=== PATIENT | female | born 1955 | race Caucasian/White ===

== ENCOUNTER 2020-06-10 06:04 | Inpatient (IN) | payer BC ==
[2020-06-07 13:04] LABS: HEMATOCRIT 36.3 % (37.0-47.0); HEMOGLOBIN 12.1 gm/dL (12.0-15.0); MCH 30.7 pg (26.0-34.0); MCHC 33.3 g/dL (28.0-37.0); MCV 92.2 fL (80.0-100.0); RBC 3.94 mil/uL (4.20-5.00); RDW 14.7 % (10.5-14.5); URINE BILIRUBIN NEGATIVE (Negative); URINE BLOOD NEGATIVE (Negative); URINE CLARITY CLEAR; URINE COLOR YELLOW; URINE GLUCOSE-RANDOM* NEGATIVE (Negative); URINE KETONES NEGATIVE (Negative); URINE PROTEIN (DIPSTICK) NEGATIVE (Negative); WBC 7.8 thou/uL (4.0-11.0)
[2020-06-07 13:14] LABS: ALBUMIN 3.7 g/dL (3.4-5.0); CALCIUM 8.7 mg/dL (8.5-10.1); CREATININE 1.5 mg/dL (0.6-1.0); POTASSIUM 3.9 mmol/L (3.5-5.1)
[2020-06-07 13:16] LABS: URINE LEUKOCYTES-REFLEX 2+ (Negative); URINE NITRITE-REFLEX POSITIVE (Negative)
[2020-06-07 13:21] LABS: CASTS None Seen /LPF (None Seen); CRYSTALS None Seen /LPF (None Seen); SQUAMOUS >10 Many /LPF (0-3); URINE RBC None Seen /HPF (0-2)
[2020-06-07 13:22] LABS: URINE WBC-REFLEX 6-15 Few /HPF (0-5)
[2020-06-08 01:06] LABS: GLYCOHEMOGLOBIN (HGB A1C) 5.4 % (4.8-5.6)
[~2020-06-10] VITALS: Ht 165.1 cm; Wt 124.7 kg
[~2020-06-10 06:04] MED LIST: ASA81BEC PO; BUPROPION HCL150 MG PO; COZAAR100 MG PO; FOSAMAX 70 MG T70 MG PO; LEVO-T100 MCG PO; LEXAPRO20 MG PO; LOPRESSOR50 MG PO; METOPROLOL TART25 MG PO; PACERONE200 MG PO; SPIRONOLACTONE50 MG PO; VITAMIN D350 MCG PO
[2020-06-10 07:25] VITALS: BP 117/48
[2020-06-10 07:38] LABS: URINE BILIRUBIN NEGATIVE (Negative); URINE BLOOD NEGATIVE (Negative); URINE CLARITY CLEAR; URINE COLOR YELLOW; URINE GLUCOSE-RANDOM* NEGATIVE (Negative); URINE KETONES NEGATIVE (Negative); URINE PROTEIN (DIPSTICK) NEGATIVE (Negative); URINE UROBILINOGEN 0.2 E.U./dl (0.2-1.0)
[2020-06-10 07:40] LABS: URINE LEUKOCYTES-REFLEX 1+ (Negative); URINE NITRITE-REFLEX POSITIVE (Negative)
[2020-06-10 07:42] LABS: CASTS None Seen /LPF (None Seen); SQUAMOUS >10 Many /LPF (0-3)
[2020-06-10 07:43] LABS: BACTERIA-REFLEX >30 Many /HPF (None Seen); CRYSTALS None Seen /LPF (None Seen); URINE RBC None Seen /HPF (0-2); URINE WBC-REFLEX 6-15 Few /HPF (0-5)
[2020-06-10 10:27] VITALS: BP 131/66
[2020-06-10] MEDS ORDERED: CELECOXIB200 MG PO (11:12)
[2020-06-10] MEDS ORDERED: ALENDRONATE SOD70 MG PO (11:14)
[2020-06-10] MEDS ORDERED: TRAZODONE HCL50 MG PO (11:16)
[2020-06-10] MEDS ORDERED: LISINOPRIL2.5 MG PO (11:18)
[2020-06-10] MEDS ORDERED: POTASSIUM20 PO (11:20)
--- NOTE | 2020-06-10 11:57 | O ---
[facility] [place] [address] OPERATIVE REPORT Name: ANGELIQUE ELLIOTT Room #: 442-P ADM IN M.R.#: [id number] Admission: 06/10/20 Attend Phys: Wayne Quinonez MD Discharge: Date of : 53 Report #: [id number] THIS REPORT FOR: cc: Adriana Laureano,Wayne Flaherty MD ~ CC: Wayne Laureano DATE OF SERVICE: 06/10/2020 PREOPERATIVE DIAGNOSIS: End-stage degenerative arthritis, left knee. POSTOPERATIVE DIAGNOSIS: End-stage degenerative arthritis, left knee. PROCEDURE: Left total knee arthroplasty. SURGEON: Wayne Quinonez MD INDICATIONS: This heavy 65-year-old female complains of progressive left knee pain with mild varus deformity. She is quite heavy and deconditioned, but is still active and actually working. She is having more difficulty with any prolonged standing or walking and has decided to go ahead with left total knee arthroplasty. We have discussed that she has had some increased risk for postoperative problems given her size. DESCRIPTION OF PROCEDURE: The patient was taken to the operating room where she was placed under general anesthesia. A femoral nerve block was also applied. The left knee and leg were meticulously prepped and draped. A thigh tourniquet was applied and inflated to 350 mmHg. An anterior longitudinal skin incision was made and carried through the medial retinaculum. The patella was reflected laterally. Moderately severe degenerative change in all 3 compartments was noted. The Chandler and Nephew knee system was utilized. Intramedullary guides were used on both the femur and the tibia. The femur was cut in 5 degrees of valgus. The tibia was cut perpendicular to long axis of the bone. This resulted in good improvement in her preoperative varus malalignment. The femur was best suited for a size 4 femoral component. The tibia was best suited for a size 3 tibial component. A trial reduction was performed and an 11 mm polyethylene insert resulted in satisfactory alignment, range of motion and stability. The patellar surface was resected and a 35 mm patellar button seemed to fit most appropriately. Appropriate anchor holes were created. A trial patella was placed and the patella seemed to track nicely and appeared to be stable. The trial components were removed. The bony surfaces were thoroughly irrigated and dried. The intramedullary canal was blocked with bone block on both the [address] [address] OPERATIVE REPORT Name: EARLANGELIQUE Room #: 442-P [facility] IN .R.#: [id number] Admission: 06/10/20 Attend Phys: Wayne Quinonez MD Discharge: Date of : 53 Report #: [id number] femoral and tibial sides. Methyl methacrylate cement was mixed and injected into the porous surface of the tibia. The permanent components were brought up onto the field. The Chandler and Nephew size 3 tibial Romelia II left nonporous tibial base plate was selected. This was impacted into the tibia in appropriate alignment. It seated nicely and appeared to be secure. Excess cement was removed from around its margin. The Chandler and Nephew size 4 left cruciate retaining Legion femoral component was impacted on the distal femur. Some cement was used at the distal locking holes as she is somewhat osteoporotic. The femoral component also seemed to seat nicely and appeared to be secure. An 11 mm Legion cruciate retaining articular polyethylene insert was then applied, this was snapped into place and seated nicely and appeared to be secure. The size 35 mm Romelia II patellar resurfacing button was applied with appropriate anchor holes and cement, that was secured with a patellar clamp until the cement had hardened. Once the cement was firm, range of motion, alignment and stability were once again assessed and felt to be satisfactory. The patellar tracks nicely and appears to be stable. She demonstrates full knee extension and flexion beyond 120 degrees, although she is somewhat limited by her very large size. At this point, a single Hemovac was left in the wound exiting through a separate stab incision. The fascia was closed with multiple #1 Vicryl sutures. The tourniquet was deflated after a total tourniquet time of 62 minutes. Good hemostasis was confirmed. The abundant adipose tissues were closed with multiple layers of 0 Monocryl. The skin was closed with skin sarah. A sterile dressing was applied. The patient was awakened and returned to recovery room in good condition. <ELECTRONICALLY SIGNED> By: Wayne Quinonez MD 06/10/20 1157 [id number] Wayne Quinonez MD /nt
--- NOTE | 2020-06-10 14:50 | NUR ---
ASSESSMENT: CM REVIEWED CHART AND SPOKE WITH PT. PT IS S/P TKA. PT REPORTS SHE LIVES IN A HOME WITH HER AND CURRENTLY DAUGHTER AND TWO GRANDCHILDREN ARE STAYING THERE WELL. SHE REPORTS HAVING 3 STEPS WITH HANDRAIL TO ENTER. PT REPORTS ONCE INSIDE THERE ARE NO STEPS AND IT IS A RANCH STYLE HOME. PT REPORTS SHE DOES NOT HAVE ANY DME AT HOME OTHER THEN A CPAP. PT REPORTS NORMALLY WALKING INDEPENDENTLY. PT REPORTS HAVING HH YEARS AGO BUT UNSURE THE AGENCY. CM DISCUSSED POSSIBLE NEED FOR DME AT DISCHARGE AND SHE REPORTS NO PREFERENCE OF PROVIDER. CM WILL CONTINUE TO FOLLOW AND AWAIT THERAPY EVALS.
--- NOTE | 2020-06-10 15:38 | NUR ---
PT CARE ASSUMED FROM OR AT 1010. A&Ox4. NO COMPLAINTS OF PAIN FEMORAL BLOCK IN PLACE. HEMOVAC. TEDHOSES KNEE HIGH, SCD'S. POST OP FLUIDS INFUSING. VITALS STABLE. PERSONAL CPAP IN ROOM. ADMISSION COMPLEETE. PAPERWORK SIGNED. IV PATENT WITH NO REDNESS OR EDEMA, FLUIDS INFUSING. PT/OT/RT IN PLACE. BID BLOODSUGAR CHECKS. HAS URINATED. FALL PROTOCOL IN PLACE. CALL LIGHT IN REACH. WILL CONTINUE TO MONITOR.
[2020-06-10 16:11] VITALS: BP 99/46
[2020-06-10 20:01] VITALS: BP 93/45
[2020-06-10 23:12] VITALS: BP 93/45
[2020-06-11] VITALS (8 sets, daily range): BP systolic 100–116; BP diastolic 42–57
--- NOTE | 2020-06-11 03:37 | NUR ---
PT AOX4. PT REPORTS 3-4/10 LEFT BACK OF KNEE PAIN. PT RECEIVING PRN PO NORCO Q4HR WITH PRN PO OXYCODONE Q4HR AVAILABLE. PT DENIES SOB. PT WITH SLEEP APNEA, USING CPAP AT HS. PT TOLERATING PO INTAKE OF FLUIDS AND 2GM SODIUM DIET. PT VOIDING BY BEDPAN. PT RESTING IN BED THROUGHOUT SHIFT, FREQUENT REPOSITIONING ENCOURAGED. PT NOTED TO SHIFT INDEPENDENTLY WHILE IN BED. PT WITHOUT NUMBNESS OR TINGLING TO ALL EXTREMITIES. CAPILLARY REFILL INTACT, LESS THAN 3SEC IN ALL EXTREMITIES. PT ENCOURAGED TO NOTIFY STAFF FOR ALL NEEDS. CALL LIGHT WITHIN REACH, BED ALARM ON, BED IN LOWEST POSITION, FREQUENT MONITORING WILL CONTINUE.
[2020-06-11 05:40] LABS: HEMATOCRIT 27.7 % (37.0-47.0); HEMOGLOBIN 9.3 gm/dL (12.0-15.0); MCHC 33.6 g/dL (28.0-37.0); MCV 92.2 fL (80.0-100.0); RDW 14.5 % (10.5-14.5); WBC 9.9 thou/uL (4.0-11.0)
--- NOTE | 2020-06-11 08:27 | NUR ---
RD consult received. Pt with high BMI 45.8=class III obesity. Admit with left TKR. Hx diet controlled DM, CHF, HTN. Eating 100% meals. A1C 5.4 and accucheck 93 without need for insulin coverage. Low nutrition risk.
[2020-06-11 09:37] LABS: CALCIUM 8.8 mg/dL (8.5-10.1); CREATININE 1.5 mg/dL (0.6-1.0); MAGNESIUM 2.4 mg/dL (1.8-2.4); POTASSIUM 4.3 mmol/L (3.5-5.1)
--- NOTE | 2020-06-11 16:16 | NUR ---
ON-GOING ASSESSMENT: CM REVIEWED CHART. PT IS SLOWLY PROGRESSING TOWARDS DISCHARGE GOALS AND WILL LIKELY DISCHARGE OVER THE WEEKEND WITH HOME HEALTH ([facility] ). CONTACT [facility] TO NOTIFY OF DISCHARGE AT [phone] AND FAX D/C ORDERS AND SUMMARY TO THEM AT [phone]. PT WILL NEED TO BE ISSUED A WALKER BY PHYSICAL THERAPY OVER THE WEEKEND PRIOR TO D/C. CM NOTIFIED PHYSICAL THERAPY AT [phone]. PT LIVES AT HOME WITH FAMILY AND WILL HAVE TRANSPORTATION HOME.
--- NOTE | 2020-06-11 16:22 | NUR ---
ON-GOING ASSESSMENT: CM REVIEWED CHART. PT IS POSSIBLE DISCHARGE WITH HOME HEALTH ([facility]) OVER THE WEEKEND. CONTACT [facility] AT [phone] TO NOTIFY THEM OF DISCHARGE AND FAX DISCHARGE ORDERS AND SUMMARY TO THEIR FAX [phone]. PT WILL ALSO NEED TO BE ISSUED A WALKER OVER THE WEEKEND BY PHYSCIAL THERAPY PRIOR TO DISCHARGE. CM SPOKE [facility] PROVIDER PLUS WHO STATES PHYSICAL THERAPY CAN ISSUE IT OVER THE WEEKEND TO THE PATIENT. CM NOTIFIED PHYSICAL THERAPY AT 1-1970. PT LIVES WITH FAMILY AND THEY WILL PROVIDE TRANSPORTATION HOME.
--- NOTE | 2020-06-12 00:54 | NUR ---
PT WAS OBSERVED LYING IN BED WITH HER EYES CLOSED AT THE START OF SHIFT.PT DENIED PAIN SO FAR.DRSG TO HER L KNEE C/D/I.INCENTIVE SPIROMETER ENCOURAGED.SCD AND FALL PRECAUTION IN PLACE.PT SLEEPING WITH HER CPAP AT THIS TIME.PT ABLE TO REPOSITION SELF WHILE IN BED.CALL LIGHT WITHIN REACH.
[2020-06-12 04:06] VITALS: BP 127/49
[2020-06-12 05:28] LABS: HEMATOCRIT 27.7 % (37.0-47.0); HEMOGLOBIN 9.3 gm/dL (12.0-15.0); MCH 30.8 pg (26.0-34.0); MCHC 33.7 g/dL (28.0-37.0); MCV 91.3 fL (80.0-100.0); RBC 3.03 mil/uL (4.20-5.00); RDW 14.5 % (10.5-14.5); WBC 7.9 thou/uL (4.0-11.0)
[2020-06-12 08:10] VITALS: BP 125/45
--- NOTE | 2020-06-12 12:17 | NUR ---
PT CARE ASSUMED AT 0700. A&Ox4. PT UP WITH WALKER AND STANDBY ASSIST TO THE BATHROOM. PT HAS ONLY NEEDED PAIN MEDICATION TWICE IN THE LAST 24HOURS AND HAS REQUESTED IF POSSIBLE TO GO HOME TODAY WITH HOME HEALTH. IV PATENT WITH NO REDNESS OR EDEMA, SALINE LOCKED. DIET CONTROLLED DIABETIC THAT HAS BEEN WELL CONTROLLED WITH BID BLOOD SUGAR CHECKS AND NO INSULINE NEEDS. [facility] DRESSING CHANGED FOR POSSIBLE DISCHARGE. ICEPACK IN PLACE. DAUGHTER IN ROOM. FALL PROTOCOL IN PLACE. CALL LIGHT IN REACH. WILL CONTINUE TO MONITOR.
[2020-06-12 17:00] VITALS: BP 127/40
[2020-06-12 20:39] VITALS: BP 134/52
[2020-06-13 03:58] VITALS: BP 126/60
--- NOTE | 2020-06-13 05:50 | NUR ---
PT TRANSFERRING TO BEDSIDE COMMODE WITH ASSIST AND IS TOLERATING FAIR. [facility] PROVIDING PAIN RELIEF. PLAN FOR DISCHARGE HOME 06/13. RESTING COMFORTABLY. NO NEEDS VOICED. CALL LIGHT WITHIN REACH. FREQUENT OBSERVATION.
[2020-06-13 05:53] LABS: HEMOGLOBIN 8.5 gm/dL (12.0-15.0); MCHC 33.9 g/dL (28.0-37.0); MCV 91.4 fL (80.0-100.0); RBC 2.74 mil/uL (4.20-5.00); RDW 14.8 % (10.5-14.5); WBC 5.8 thou/uL (4.0-11.0)
[2020-06-13 07:40] VITALS: BP 130/78
[2020-06-13] MEDS ORDERED: NORCO 10-325 T1 EACH PO ×2 (10:12→10:37)
[2020-06-13] MEDS ORDERED: XARELTO10 MG PO (10:14)
[2020-06-13 11:01] VITALS: BP 104/50
== END 2020-06-13 12:44 | disposition home health service (06) | DRG 470 ==
LOC: TBA 06:04 → 4S 06:04 → PRE 09:30 → 4S 10:05 → PRE 11:34 → 4S 06-13 12:44
PROVIDERS: Hospitalist; ADMIT Orthopaedic Surgery; ATTEND Orthopaedic Surgery
DX: M17.12 Unilateral primary osteoarthritis, left knee (principal); N39.0 Urinary tract infection, site not specified; N17.9 Acute kidney failure, unspecified; Z68.42 Body mass index [BMI] 45.0-49.9, adult; D62 Acute posthemorrhagic anemia; I13.0 Hypertensive heart and chronic kidney disease with heart failure and stage 1 through stage 4 chronic kidney disease, or unspecified chronic kidney disease; I48.91 Unspecified atrial fibrillation; E11.9 Type 2 diabetes mellitus without complications; N18.9 Chronic kidney disease, unspecified; M81.0 Age-related osteoporosis without current pathological fracture; I50.9 Heart failure, unspecified; F41.9 Anxiety disorder, unspecified; E03.9 Hypothyroidism, unspecified; F32.9 Major depressive disorder, single episode, unspecified; I34.0 Nonrheumatic mitral (valve) insufficiency; E66.9 Obesity, unspecified; B96.20 Unspecified Escherichia coli [E. coli] as the cause of diseases classified elsewhere; G47.33 Obstructive sleep apnea (adult) (pediatric); Z20.828 Contact with and (suspected) exposure to other viral communicable diseases; Z96.651 Presence of right artificial knee joint; Z88.2 Allergy status to sulfonamides
CPT/HCPCS: 10102; 50010; 50101; 50415; 50954; 51130; 51225; 51412; 53364; 56525; 56527; 57095; 57103; 57104; 57180; 62110; 62900; 64039; 70005